=== PATIENT | female | born 1965 | race African-American/Black ===

== ENCOUNTER 2017-08-11 15:36 | Emergency (ER) | payer MEDICAID ==
[~2017-08-11] VITALS: Ht 167.6 cm; Wt 91.0 kg
[2017-08-11] MEDS ORDERED: LORAZEPAM 2MG/ML CPJ IM ONE (19:00)
[2017-08-11] MEDS ORDERED: HALOPERIDOL LACTATE 5MG/ML VIAL IM ONE (19:00)
[2017-08-11] MEDS ORDERED: ZIPRASIDONE MESYLATE 20MG/VIAL IM ONE (19:00)
[2017-08-12 22:30] VITALS: BP 110/59
== END 2017-08-12 23:00 | disposition home or self-care (01) ==
LOC: ER 15:46
DX: F91.8 Other conduct disorders (principal); M79.606 Pain in leg, unspecified; M19.90 Unspecified osteoarthritis, unspecified site
CPT/HCPCS: 96372; 99284; J1630; J2060; J3486; Z7610

== ENCOUNTER 2017-08-13 02:06 | Emergency (ER) | payer MEDICAID ==
[~2017-08-13] VITALS: Ht 177.8 cm; Wt 59.0 kg
[2017-08-13 02:17] VITALS: BP 100/65
[2017-08-13] MEDS ORDERED: KETOROLAC 60MG/2ML VIAL IM STA (10:10)
== END 2017-08-13 11:29 | disposition home or self-care (01) ==
LOC: ER 02:06
DX: S80.02XA Contusion of left knee, initial encounter (principal); S80.01XA Contusion of right knee, initial encounter; M25.512 Pain in left shoulder; M25.511 Pain in right shoulder; V00.811A Fall from moving wheelchair (powered), initial encounter; F17.200 Nicotine dependence, unspecified, uncomplicated; Z99.3 Dependence on wheelchair; Z78.1 Physical restraint status; Y93.9 Activity, unspecified
CPT/HCPCS: 73560; 96372; 99284; J1885

== ENCOUNTER 2017-12-31 12:11 | Inpatient (IN) | payer MEDICAID ==
[~2017-12-31] VITALS: Ht 152.4 cm; Wt 61.7 kg
[2017-12-31] MEDS ORDERED: SODIUM CHLORIDE 0.9% 1000ML BAG (SEPSIS BOLUS) IV ONE (13:15)
[2017-12-31 14:03] LABS: BASOPHILS % 0.6 % (0.0-2.0); EOSINOPHILS % 1.6 % (0.0-5.0); HEMATOCRIT. 37.8 % (36.0-48.0); HEMOGLOBIN. 12.7 g/dL (12.0-16.0); LYMPHOCYTES % 21.3 % (20.0-50.0); MEAN CORPUSCULAR HEMOGLOBIN 32.1 pg (28.0-32.0); MEAN CORPUSCULAR VOLUME 95.8 fL (81.0-99.0); MEAN PLATELET VOLUME 8.6 fl (7.4-10.4); MONOCYTES % 8.1 % (2.0-8.0); NEUTROPHILS % 68.4 % (40.0-76.0); PLATELET 314 x1000/uL (130-400); RED BLOOD CELL COUNT 3.95 mill/uL (4.2-5.4); RED CELL DISTRIBUTION WIDTH 14.7 % (11.6-14.6)
[2017-12-31 14:05] LABS: CHLORIDE 101 mEq/L (98-107)
[2017-12-31 14:08] LABS: PROTHROMBIN TIME 10.2 sec (9.1-11.1)
[2017-12-31 14:12] LABS: ETHANOL BLOOD < 10 mg/dL
[2017-12-31 14:17] LABS: HCG SCREEN NEGATIVE
[2017-12-31] MEDS ORDERED: LORAZEPAM 2MG/ML CPJ IV ONE ×2 (15:30→15:45)
[2017-12-31] MEDS ORDERED: LORAZEPAM 2MG/ML CPJ IV PRN (18:00)
[2017-12-31] MEDS ORDERED: CLONIDINE 0.1MG TABLET PO PRN (18:00)
[2017-12-31] MEDS: HYDROCODONE/ACETAMINOPHEN 5/325MG TABLET PO PRN (19:53)
[2017-12-31] MEDS: ONDANSETRON HCL 4MG/2ML VIAL IV PRN (19:53)
[2017-12-31 21:56] LABS: CLARITY URINE CLOUDY (CLEAR); COLOR URINE YELLOW (YELLOW); KETONES URINE 1+ (NEGATIVE); LEUKOCYTE ESTERASE URINE 2+ (NEGATIVE); NITRITE URINE NEGATIVE (NEGATIVE); OCCULT BLOOD URINE TRACE (NEGATIVE); PH URINE 5.5 (4.5-8.0); PROTEIN URINE NEGATIVE (NEGATIVE); SPECIFIC GRAVITY URINE 1.029 (1.005-1.030)
[2017-12-31 22:07] LABS: *AMPHETAMINES SCREEN URINE NEGATIVE (NEGATIVE); *BARBITURATES SCREEN URINE NEGATIVE (NEGATIVE); *BENZODIAZEPINES SCREEN URINE NEGATIVE (NEGATIVE); *COCAINE SCREEN URINE PRESUMTIVE POSITIVE (NEGATIVE)
[2017-12-31 22:08] LABS: CANNABINOID URINE SCREEN NEGATIVE (NEGATIVE); METHADONE URINE SCREEN NEGATIVE (NEGATIVE); OPIATES URINE SCREEN PRESUMTIVE POSITIVE (NEGATIVE); PHENCYCLIDINE URINE SCREEN NEGATIVE (NEGATIVE)
[2017-12-31 23:25] VITALS: BP 105/68
[2017-12-31 23:59] VITALS: BP 105/68
[2018-01-01 04:00] VITALS: BP 103/54
[2018-01-01] MEDS: ONDANSETRON HCL 4MG/2ML VIAL IV PRN (04:58)
[2018-01-01] MEDS: HYDROCODONE/ACETAMINOPHEN 5/325MG TABLET PO PRN ×2 (05:31→09:42)
[2018-01-01 07:08] LABS: BASOPHILS % 0.1 % (0.0-2.0); EOSINOPHILS % 1.4 % (0.0-5.0); HEMATOCRIT. 32.3 % (36.0-48.0); HEMOGLOBIN. 10.8 g/dL (12.0-16.0); MEAN CORPUSCULAR HEMOGLOBIN 32.1 pg (28.0-32.0); MEAN CORPUSCULAR VOLUME 95.7 fL (81.0-99.0); MEAN PLATELET VOLUME 8.7 fl (7.4-10.4); MONOCYTES % 9.7 % (2.0-8.0); NEUTROPHILS % 76.8 % (40.0-76.0); PLATELET 249 x1000/uL (130-400); RED BLOOD CELL COUNT 3.38 mill/uL (4.2-5.4); RED CELL DISTRIBUTION WIDTH 14.3 % (11.6-14.6)
[2018-01-01 08:00] VITALS: BP 96/57
[2018-01-01 08:11] LABS: CHLORIDE 104 mEq/L (98-107)
[2018-01-01 09:42] VITALS: BP 96/57
[2018-01-01] MEDS ORDERED: CEFTRIAXONE 1 G PREMIX 50 ML IV SCH (11:00)
[2018-01-01] MEDS ORDERED: ATORVASTATIN CALCIUM 40MG TABLET PO SCH (21:00)
== END 2018-01-01 11:17 | disposition left against medical advice (07) | DRG 463 ==
LOC: ER 12:24 → 5WST 17:22 → EDBEDREQTM 17:29 → EDBEDREQ 17:29 → ENRESERV 20:51 → 5WST 01-01 03:57
PROVIDERS: ADMIT Internal Medicine; ATTEND Internal Medicine
DX: N39.0 Urinary tract infection, site not specified (principal); G82.20 Paraplegia, unspecified; E78.5 Hyperlipidemia, unspecified; F14.90 Cocaine use, unspecified, uncomplicated; F17.200 Nicotine dependence, unspecified, uncomplicated; M48.00 Spinal stenosis, site unspecified; Z53.21 Procedure and treatment not carried out due to patient leaving prior to being seen by health care provider
CPT/HCPCS: 36415; 51702; 71045; 74176; 80048; 80053; 80061; 80305; 81003; 83036; 83605; 83690; 83880; 84443; 84484; 84703; 85025; 85610; 87040; 87086; 93005; 93970; 96361; 96374; 96376; 99285; G0482; J0696; J2060; J2405; J7030; J7050

== ENCOUNTER 2018-01-15 16:42 | Emergency (ER) | payer MEDICAID ==
[~2018-01-15] VITALS: Ht 165.1 cm; Wt 68.0 kg
[2018-01-16] MEDS ORDERED: ACETAMINOPHEN 325MG TABLET PO STA (01:03)
[2018-01-16 01:45] LABS: BASOPHILS % 0.5 % (0.0-2.0); EOSINOPHILS % 1.3 % (0.0-5.0); HEMATOCRIT. 40.5 % (36.0-48.0); HEMOGLOBIN. 13.5 g/dL (12.0-16.0); MEAN CORPUSCULAR HEMOGLOBIN 32.1 pg (28.0-32.0); MEAN CORPUSCULAR VOLUME 96.4 fL (81.0-99.0); MEAN PLATELET VOLUME 8.6 fl (7.4-10.4); MONOCYTES % 5.6 % (2.0-8.0); NEUTROPHILS % 68.6 % (40.0-76.0); PLATELET 358 x1000/uL (130-400); RED CELL DISTRIBUTION WIDTH 14.3 % (11.6-14.6)
[2018-01-16 01:48] LABS: CHLORIDE 102 mEq/L (98-107)
[2018-01-16 01:50] LABS: PROTHROMBIN TIME 10.4 sec (9.1-11.1)
[2018-01-16 01:55] LABS: ETHANOL BLOOD < 10 mg/dL
[2018-01-16 02:54] VITALS: BP 122/67
== END 2018-01-16 06:49 | disposition home or self-care (01) ==
LOC: ER 16:42
DX: R10.9 Unspecified abdominal pain (principal); Z98.890 Other specified postprocedural states
CPT/HCPCS: 36415; 80053; 80307; 80329; 83690; 85025; 85610; 99284; G0482; Z7610

== ENCOUNTER 2018-01-16 06:50 | Emergency (ER) | payer MEDICAID ==
[~2018-01-16] VITALS: Ht 152.4 cm; Wt 63.0 kg
[2018-01-16 07:33] VITALS: BP 126/72
== END 2018-01-16 08:41 | disposition left against medical advice (07) ==
LOC: ER 06:50
DX: R10.9 Unspecified abdominal pain (principal); M54.9 Dorsalgia, unspecified; R51 Headache; M25.519 Pain in unspecified shoulder; Z53.21 Procedure and treatment not carried out due to patient leaving prior to being seen by health care provider

== ENCOUNTER 2018-02-05 07:19 | Emergency (ER) | payer MEDICAID ==
[~2018-02-05] VITALS: Ht 154.9 cm; Wt 52.3 kg
[2018-02-05] MEDS ORDERED: ACETAMINOPHEN 500MG TABLET PO ONE (08:45)
[2018-02-05 13:47] VITALS: BP 110/62
== END 2018-02-05 14:29 | disposition home or self-care (01) ==
LOC: ER 07:34
DX: M19.011 Primary osteoarthritis, right shoulder (principal)
CPT/HCPCS: 73030; 99284; Z7610

== ENCOUNTER 2018-02-23 05:29 | Inpatient (IN) | payer MEDICAID ==
[~2018-02-23] VITALS: Ht 160 cm; Wt 59.0 kg
[2018-02-23] MEDS ORDERED: ONDANSETRON HCL 4MG/2ML INJ IV ONE (06:45)
[2018-02-23] MEDS ORDERED: KETOROLAC 15MG/ML VIAL IV ONE (06:45)
[2018-02-23 08:05] LABS: BASOPHILS % 0.5 % (0.0-2.0); EOSINOPHILS % 1.6 % (0.0-5.0); HEMATOCRIT. 40.2 % (36.0-48.0); HEMOGLOBIN. 13.3 g/dL (12.0-16.0); LYMPHOCYTES % 27.1 % (20.0-50.0); MEAN CORPUSCULAR HEMOGLOBIN 32.1 pg (28.0-32.0); MEAN CORPUSCULAR VOLUME 96.8 fL (81.0-99.0); MEAN PLATELET VOLUME 8.3 fl (7.4-10.4); NEUTROPHILS % 64.8 % (40.0-76.0); PLATELET 377 x1000/uL (130-400); RED BLOOD CELL COUNT 4.15 mill/uL (4.2-5.4); RED CELL DISTRIBUTION WIDTH 13.6 % (11.6-14.6)
[2018-02-23 08:15] LABS: CHLORIDE 105 mEq/L (98-107)
[2018-02-23 08:20] LABS: ETHANOL BLOOD < 10 mg/dL
[2018-02-23 10:43] LABS: CLARITY URINE CLEAR (CLEAR); COLOR URINE YELLOW (YELLOW); KETONES URINE 1+ (NEGATIVE); LEUKOCYTE ESTERASE URINE NEGATIVE (NEGATIVE); NITRITE URINE NEGATIVE (NEGATIVE); OCCULT BLOOD URINE NEGATIVE (NEGATIVE); PROTEIN URINE NEGATIVE (NEGATIVE); SPECIFIC GRAVITY URINE 1.012 (1.005-1.030)
[2018-02-23 11:03] LABS: *AMPHETAMINES SCREEN URINE NEGATIVE (NEGATIVE); *BARBITURATES SCREEN URINE NEGATIVE (NEGATIVE)
[2018-02-23 11:04] LABS: *BENZODIAZEPINES SCREEN URINE NEGATIVE (NEGATIVE); *COCAINE SCREEN URINE PRESUMTIVE POSITIVE (NEGATIVE); CANNABINOID URINE SCREEN NEGATIVE (NEGATIVE); METHADONE URINE SCREEN NEGATIVE (NEGATIVE); OPIATES URINE SCREEN NEGATIVE (NEGATIVE); PHENCYCLIDINE URINE SCREEN NEGATIVE (NEGATIVE)
[2018-02-23] MEDS ORDERED: SODIUM CHLORIDE 0.9% 1,000 ML IV ONE (12:00)
[2018-02-23] MEDS ORDERED: DEXT 5%/0.45% NACL 1000ML 1,000 ML IV SCH ×2 (13:53→17:45)
[2018-02-23] MEDS ORDERED: LORAZEPAM 2MG/ML CPJ IV PRN (14:00)
[2018-02-23] MEDS ORDERED: ACETAMINOPHEN 325MG TABLET PO PRN (14:00)
[2018-02-23] MEDS ORDERED: ONDANSETRON HCL 4MG/2ML INJ IV PRN (14:00)
[2018-02-23] MEDS ORDERED: CLONIDINE 0.1MG TABLET PO PRN (14:00)
[2018-02-23] MEDS ORDERED: DOCUSATE SODIUM 100MG CAPSULE PO PRN (14:00)
[2018-02-23 18:31] LABS: CREATINE KINASE 69 IU/L (26-192)
[2018-02-23 20:00] VITALS: BP 107/54
[2018-02-24] VITALS: BP 112/63
[2018-02-24 08:00] VITALS: BP 115/62
[2018-02-24] MEDS ORDERED: AMLODIPINE 10MG TABLET PO SCH (09:00)
[2018-02-24] MEDS: AMLODIPINE 10MG TABLET PO SCH (09:57)
[2018-02-24 12:00] VITALS: BP 98/50
[2018-02-24] MEDS: LORAZEPAM 2MG/ML CPJ IM PRN (14:14)
[2018-02-24 20:00] VITALS: BP 104/53
[2018-02-24] MEDS: HYDROCODONE/ACETAMINOPHEN 5/325MG TABLET PO PRN (20:22)
[2018-02-25] MEDS: LORAZEPAM 2MG/ML CPJ IM PRN ×3 (03:33→22:54)
[2018-02-25] MEDS: HYDROCODONE/ACETAMINOPHEN 5/325MG TABLET PO PRN ×3 (03:33→16:06)
[2018-02-25 04:00] VITALS: BP 115/72
[2018-02-25 08:00] VITALS: BP 118/71
[2018-02-25] MEDS: AMLODIPINE 10MG TABLET PO SCH ×2 (09:04→09:23)
[2018-02-25 12:00] VITALS: BP 118/71
[2018-02-25 16:00] VITALS: BP 109/69
[2018-02-25 20:00] VITALS: BP 117/68
[2018-02-26] VITALS: BP 114/62
[2018-02-26] MEDS: HYDROCODONE/ACETAMINOPHEN 5/325MG TABLET PO PRN ×2 (02:34→22:29)
[2018-02-26 07:50] VITALS: BP 108/66
[2018-02-26 12:00] VITALS: BP 140/57
[2018-02-26] MEDS: LORAZEPAM 2MG/ML CPJ IM PRN ×2 (13:46→22:31)
[2018-02-26 16:00] VITALS: BP 128/78
[2018-02-26 20:00] VITALS: BP 97/53
[2018-02-27] VITALS: BP 129/70
[2018-02-27 04:00] VITALS: BP 94/48
[2018-02-27 08:00] VITALS: BP 126/72
[2018-02-27] MEDS: AMLODIPINE 10MG TABLET PO SCH (08:44)
[2018-02-27 12:00] VITALS: BP 123/74
[2018-02-27 16:00] VITALS: BP 108/71
[2018-02-27] MEDS: HYDROCODONE/ACETAMINOPHEN 5/325MG TABLET PO PRN (16:08)
[2018-02-27] MEDS: LORAZEPAM 2MG/ML CPJ IM PRN (22:30)
[2018-02-28] VITALS: BP 111/66
[2018-02-28 04:00] VITALS: BP 111/65
[2018-02-28] MEDS: AMLODIPINE 10MG TABLET PO SCH (08:39)
[2018-03-10] MEDS ORDERED: METH-612 PO (10:54)
[2018-03-10] MEDS ORDERED: GABA-533 PO (10:59)
[2018-03-10] MEDS ORDERED: HYDR-4009 PO (10:59)
== END 2018-02-28 12:15 | disposition left against medical advice (07) | DRG 816 ==
LOC: ER 05:29 → 6EST 13:37 → EDBEDREQ 13:49 → SUPCPDRO 13:52 → ENRESERV 15:22 → ER 17:41
PROVIDERS: ADMIT Hospitalist; ATTEND Hospitalist
DX: T40.5X1A Poisoning by cocaine, accidental (unintentional), initial encounter (principal); L89.891 Pressure ulcer of other site, stage 1; E86.0 Dehydration; Z53.21 Procedure and treatment not carried out due to patient leaving prior to being seen by health care provider; I10 Essential (primary) hypertension; Z59.0 Homelessness
CPT/HCPCS: 36415; 80305; 82550; 82962; 96361; 96372; 96374; 96375; 99285; A6261; C1893; G0482; J1885; J2060; J2405; J7030; A4315

== ENCOUNTER 2018-03-19 06:01 | Emergency (ER) | payer MEDICAID ==
[~2018-03-19] VITALS: Ht 160 cm; Wt 64.0 kg
[~2018-03-19 06:01] MED LIST: GABA-533 PO; HYDR-4009 PO; METH-612 PO
[2018-03-19] MEDS ORDERED: GABAPENTIN 300MG CAPSULE PO SCH (21:15)
[2018-03-19] MEDS: ACETAMINOPHEN 325MG TABLET PO ONE ×2 (21:21→21:22)
[2018-03-19] MEDS ORDERED: HYDROCODONE/ACETAMINOPHEN 5/325MG TABLET PO ONE (22:00)
[2018-03-20] MEDS ORDERED: IBUPROFEN 600MG TABLET PO ONE (04:15)
[2018-03-20 12:18] VITALS: BP 97/54
== END 2018-03-20 12:20 | disposition home or self-care (01) ==
LOC: ER 06:01
DX: M54.2 Cervicalgia (principal); M54.9 Dorsalgia, unspecified
CPT/HCPCS: 72100; 99283

== ENCOUNTER 2018-04-02 05:46 | Emergency (ER) | payer MEDICAID ==
[~2018-04-02] VITALS: Ht 157.5 cm; Wt 50.0 kg
[2018-04-02 08:05] LABS: HEMATOCRIT. 41.7 % (36.0-48.0); HEMOGLOBIN. 13.8 g/dL (12.0-16.0); MEAN CORPUSCULAR HEMOGLOBIN 32.3 pg (28.0-32.0); MEAN CORPUSCULAR VOLUME 97.5 fL (81.0-99.0); PLATELET 326 x1000/uL (130-400); RED BLOOD CELL COUNT 4.28 mill/uL (4.2-5.4); RED CELL DISTRIBUTION WIDTH 13.9 % (11.6-14.6)
[2018-04-02 08:09] LABS: CHLORIDE 104 mEq/L (98-107)
[2018-04-02 08:13] LABS: ETHANOL BLOOD < 10 mg/dL
[2018-04-02] MEDS ORDERED: ACETAMINOPHEN 325MG TABLET PO ONE (08:15)
[2018-04-02 09:01] LABS: CLARITY URINE CLEAR (CLEAR); COLOR URINE YELLOW (YELLOW); KETONES URINE 1+ (NEGATIVE); LEUKOCYTE ESTERASE URINE NEGATIVE (NEGATIVE); NITRITE URINE NEGATIVE (NEGATIVE); OCCULT BLOOD URINE NEGATIVE (NEGATIVE); PROTEIN URINE NEGATIVE (NEGATIVE); SPECIFIC GRAVITY URINE 1.027 (1.005-1.030)
[2018-04-02 09:19] LABS: *AMPHETAMINES SCREEN URINE PRESUMTIVE POSITIVE (NEGATIVE); *BENZODIAZEPINES SCREEN URINE NEGATIVE (NEGATIVE); *COCAINE SCREEN URINE PRESUMTIVE POSITIVE (NEGATIVE)
[2018-04-02 09:20] LABS: *BARBITURATES SCREEN URINE NEGATIVE (NEGATIVE); CANNABINOID URINE SCREEN PRESUMTIVE POSITIVE (NEGATIVE); METHADONE URINE SCREEN NEGATIVE (NEGATIVE); OPIATES URINE SCREEN NEGATIVE (NEGATIVE); PHENCYCLIDINE URINE SCREEN NEGATIVE (NEGATIVE)
[2018-04-02 10:34] VITALS: BP 109/60
[2018-04-02 11:10] LABS: PLATELET ESTIMATE NORMAL
== END 2018-04-02 10:39 | disposition home or self-care (01) ==
LOC: ER 06:03
DX: R51 Headache (principal); M19.90 Unspecified osteoarthritis, unspecified site; I10 Essential (primary) hypertension; Z79.899 Other long term (current) drug therapy
CPT/HCPCS: 36415; 80053; 80305; 81003; 85025; 99283; G0482

== ENCOUNTER 2018-04-05 03:59 | Inpatient (IN) | payer MEDICAID ==
[~2018-04-05] VITALS: Ht 157.5 cm; Wt 58.5 kg
[2018-04-05] MEDS ORDERED: CYCLOBENZAPRINE 10MG TABLET PO ONE (07:00)
[2018-04-05] MEDS ORDERED: ACETAMINOPHEN WITH CODEINE 300/30MG TABLET PO ONE (07:00)
[2018-04-05 07:28] LABS: BASOPHILS % 0.5 % (0.0-2.0); EOSINOPHILS % 1.8 % (0.0-5.0); HEMATOCRIT. 41.7 % (36.0-48.0); LYMPHOCYTES % 35.9 % (20.0-50.0); MEAN CORPUSCULAR HEMOGLOBIN 33.1 pg (28.0-32.0); MEAN CORPUSCULAR VOLUME 98.6 fL (81.0-99.0); MEAN PLATELET VOLUME 8.6 fl (7.4-10.4); MONOCYTES % 8.8 % (2.0-8.0); PLATELET 288 x1000/uL (130-400); RED BLOOD CELL COUNT 4.23 mill/uL (4.2-5.4); RED CELL DISTRIBUTION WIDTH 13.6 % (11.6-14.6)
[2018-04-05 07:35] LABS: CHLORIDE 105 mEq/L (98-107)
[2018-04-05 12:01] LABS: CLARITY URINE TURBID (CLEAR); COLOR URINE DARK YELLOW (YELLOW); KETONES URINE 1+ (NEGATIVE); LEUKOCYTE ESTERASE URINE 2+ (NEGATIVE); NITRITE URINE POSITIVE (NEGATIVE); OCCULT BLOOD URINE 3+ (NEGATIVE); PROTEIN URINE 3+ (NEGATIVE)
[2018-04-05] MEDS ORDERED: CEFTRIAXONE 1 G PREMIX 50 ML IV ONE (12:45)
[2018-04-05] MEDS ORDERED: MORPHINE SULFATE 4 MG/ML CPJ (NOT FOR IM USE) IV ONE (13:00)
[2018-04-05] MEDS ORDERED: MORPHINE SULFATE 2 MG/ML CPJ (NOT FOR IM USE) IV NR (13:45)
[2018-04-05] MEDS ORDERED: CLONIDINE 0.1MG TABLET PO PRN (17:15)
[2018-04-05] MEDS ORDERED: ACETAMINOPHEN 325MG TABLET PO PRN (17:15)
[2018-04-05] MEDS ORDERED: ONDANSETRON HCL 4MG/2ML INJ IV PRN (17:15)
[2018-04-05] MEDS ORDERED: KETOROLAC 15MG/ML VIAL IV PRN (17:30)
[2018-04-05] MEDS ORDERED: MULTIVITAMINS,THER W-MINERALS TABLET PO NR (20:00)
[2018-04-05] MEDS: SODIUM CHLORIDE 0.9% 1,000 ML IV SCH (20:10)
[2018-04-06] VITALS: BP 109/60
[2018-04-06 01:00] VITALS: BP 109/60
[2018-04-06 04:00] VITALS: BP 119/66
[2018-04-06] MEDS: SODIUM CHLORIDE 0.9% 1,000 ML IV SCH (06:45)
[2018-04-06 08:00] VITALS: BP 164/68
[2018-04-06] MEDS ORDERED: CEFTRIAXONE SODIUM 1 G/VIAL IM SCH (09:00)
[2018-04-06] MEDS: MULTIVITAMINS,THER W-MINERALS TABLET PO SCH (09:26)
[2018-04-06 11:00] LABS: BASOPHILS % 0.7 % (0.0-2.0); HEMATOCRIT. 37.1 % (36.0-48.0); HEMOGLOBIN. 12.2 g/dL (12.0-16.0); LYMPHOCYTES % 39.5 % (20.0-50.0); MEAN CORPUSCULAR HEMOGLOBIN 32.4 pg (28.0-32.0); MEAN CORPUSCULAR VOLUME 98.6 fL (81.0-99.0); MEAN PLATELET VOLUME 9.4 fl (7.4-10.4); MONOCYTES % 6.1 % (2.0-8.0); NEUTROPHILS % 51.7 % (40.0-76.0); PLATELET 245 x1000/uL (130-400); RED BLOOD CELL COUNT 3.76 mill/uL (4.2-5.4); RED CELL DISTRIBUTION WIDTH 13.7 % (11.6-14.6)
[2018-04-06 11:26] LABS: CHLORIDE 109 mEq/L (98-107)
[2018-04-06 12:00] VITALS: BP 98/64
[2018-04-06] MEDS ORDERED: CEFTRIAXONE 1 G PREMIX 50 ML IV SCH (14:00)
[2018-04-06] MEDS: NYSTATIN 100,000 UNITS/GM CREAM 15GM TOP SCH (21:00)
[2018-04-07 03:51] VITALS: BP 119/59
[2018-04-07 08:00] VITALS: BP 130/77
[2018-04-07] MEDS: MULTIVITAMINS,THER W-MINERALS TABLET PO SCH (08:22)
[2018-04-07] MEDS: NYSTATIN 100,000 UNITS/GM CREAM 15GM TOP SCH ×2 (08:22→09:00)
[2018-04-07] MEDS ORDERED: HALOPERIDOL LACTATE 5MG/ML VIAL IM PRN (11:45)
[2018-04-07] MEDS ORDERED: HALOPERIDOL 1MG TABLET PO PRN (11:45)
[2018-04-07] MEDS: NITROFURANTOIN 100MG M/M CAPSULE PO SCH ×2 (13:21→21:00)
[2018-04-07 20:00] VITALS: BP 135/70
[2018-04-08] VITALS: BP 130/81
[2018-04-08] MEDS: NITROFURANTOIN 100MG M/M CAPSULE PO SCH (00:13)
[2018-04-08] MEDS: NYSTATIN 100,000 UNITS/GM CREAM 15GM TOP SCH (00:13)
== END 2018-04-08 02:30 | disposition left against medical advice (07) | DRG 463 ==
LOC: ER 03:59 → 6EST 16:39 → ENRESERV 23:19
PROVIDERS: ADMIT Emergency Medicine; ATTEND Emergency Medicine
DX: N39.0 Urinary tract infection, site not specified (principal); L89.159 Pressure ulcer of sacral region, unspecified stage; G82.20 Paraplegia, unspecified; E86.0 Dehydration; G89.29 Other chronic pain; I10 Essential (primary) hypertension; M19.90 Unspecified osteoarthritis, unspecified site; M54.5 Low back pain; Z59.0 Homelessness; Z76.5 Malingerer [conscious simulation]; Z99.3 Dependence on wheelchair; Z98.891 History of uterine scar from previous surgery
CPT/HCPCS: 36415; 71045; 80048; 87077; 87186; 97162; 97166; 99285; J0696; J1630; J1885; J2270

== ENCOUNTER 2018-09-02 09:33 | Emergency (ER) | payer MEDICAID, OTHER ==
[~2018-09-02] VITALS: Ht 162.6 cm; Wt 60.0 kg
[2018-09-02] MEDS ORDERED: HYDROCODONE/ACETAMINOPHEN 5/325MG TABLET PO ONE (10:00)
[2018-09-02] MEDS ORDERED: HALOPERIDOL LACTATE 5MG/ML VIAL IM ONE (22:15)
[2018-09-02] MEDS ORDERED: QUETIAPINE FUMARATE 100MG TABLET PO ONE (22:15)
[2018-09-02] MEDS ORDERED: DIPHENHYDRAMINE 50MG CAPSULE PO ONE (22:15)
[2018-09-03 14:45] VITALS: BP 105/55
== END 2018-09-03 15:14 | disposition home or self-care (01) ==
LOC: ER 09:55
DX: M54.2 Cervicalgia (principal); R51 Headache; G82.20 Paraplegia, unspecified; Z99.3 Dependence on wheelchair; W05.0XXA Fall from non-moving wheelchair, initial encounter; Y93.89 Activity, other specified; Y92.89 Other specified places as the place of occurrence of the external cause; G89.29 Other chronic pain; M54.89 Other dorsalgia; I10 Essential (primary) hypertension; Z59.0 Homelessness
CPT/HCPCS: 70450; 72125; 99284; J1630; Q0163; Z7610; A4315

== ENCOUNTER 2018-09-03 23:19 | Emergency (ER) | payer OTHER ==
[~2018-09-03] VITALS: Ht 157.5 cm; Wt 67.0 kg
[2018-09-04 06:04] LABS: CLARITY URINE CLEAR (CLEAR); COLOR URINE YELLOW (YELLOW); KETONES URINE NEGATIVE (NEGATIVE); LEUKOCYTE ESTERASE URINE 1+ (NEGATIVE); NITRITE URINE POSITIVE (NEGATIVE); OCCULT BLOOD URINE NEGATIVE (NEGATIVE); PROTEIN URINE NEGATIVE (NEGATIVE); SPECIFIC GRAVITY URINE 1.008 (1.005-1.030)
[2018-09-04 11:30] VITALS: BP 126/74
== END 2018-09-04 12:01 | disposition home or self-care (01) ==
LOC: ER 23:19
DX: M79.605 Pain in left leg (principal); M79.604 Pain in right leg; N39.0 Urinary tract infection, site not specified; Z99.3 Dependence on wheelchair
CPT/HCPCS: 99283

== ENCOUNTER 2020-01-07 06:19 | Inpatient (IN) | payer MEDICAID, OTHER ==
[~2020-01-07] VITALS: Ht 157.5 cm; Wt 67.8 kg
[2020-01-07] MEDS ORDERED: ACETAMINOPHEN 325MG TABLET PO ONE (06:30)
[2020-01-07 16:47] LABS: CHLORIDE 107 mEq/L (98-107)
[2020-01-07 17:28] LABS: BASOPHILS % 0.7 % (0.0-2.0); EOSINOPHILS % 1.7 % (0.0-5.0); HEMOGLOBIN. 11.6 g/dL (12.0-16.0); LYMPHOCYTES % 33.3 % (20.0-50.0); MEAN CORPUSCULAR HEMOGLOBIN 33.1 pg (28.0-32.0); MEAN CORPUSCULAR VOLUME 99.4 fL (81.0-99.0); MONOCYTES % 7.4 % (2.0-8.0); NEUTROPHILS % 56.9 % (40.0-76.0); PLATELET 249 x1000/uL (130-400); RED BLOOD CELL COUNT 3.52 mill/uL (4.2-5.4); RED CELL DISTRIBUTION WIDTH 12.9 % (11.6-14.6)
[2020-01-07] MEDS ORDERED: KETOROLAC 60MG/2ML VIAL IM ONE (18:15)
[2020-01-08 09:00] VITALS: BP 85/55
[2020-01-08] MEDS ORDERED: ONDANSETRON HCL 4MG/2ML INJ IV PRN (09:00)
[2020-01-08] MEDS ORDERED: TRAMADOL 50MG TABLET PO PRN (09:00)
[2020-01-08] MEDS ORDERED: KETOROLAC 30MG/ML VIAL IV PRN (09:00)
[2020-01-08] MEDS ORDERED: ACETAMINOPHEN 325MG TABLET PO PRN (09:00)
[2020-01-08 09:10] VITALS: BP 85/52
[2020-01-08 10:00] VITALS: BP 89/55
[2020-01-08] MEDS: ENOXAPARIN 40MG/0.4ML SYR SUBCUT SCH (10:15)
[2020-01-08 12:00] VITALS: BP_SYST 89; BP_SYST 91; BP_DIAS 55; BP_DIAS 63
[2020-01-08 16:00] VITALS: BP 93/72
[2020-01-08] MEDS ORDERED: HYDROCODONE/ACETAMINOPHEN 5/325MG TABLET PO PRN (17:15)
[2020-01-08] MEDS ORDERED: POTASSIUM CHLORIDE 20MEQ TABLET SR PO NR (20:30)
[2020-01-09] MEDS ORDERED: MORPHINE SULFATE 2 MG/ML CPJ (NOT FOR IM USE) IV PRN (00:30)
[2020-01-09] MEDS: GABAPENTIN 400MG CAPSULE PO SCH ×3 (00:45→17:39)
[2020-01-09 02:49] VITALS: BP 130/66
[2020-01-09] MEDS: METHOCARBAMOL 750MG TABLET PO SCH ×3 (02:56→17:39)
[2020-01-09 07:01] LABS: BASOPHILS % 0.5 % (0.0-2.0); EOSINOPHILS % 1.5 % (0.0-5.0); HEMATOCRIT. 33.3 % (36.0-48.0); HEMOGLOBIN. 11.1 g/dL (12.0-16.0); LYMPHOCYTES % 48.5 % (20.0-50.0); MEAN CORPUSCULAR HEMOGLOBIN 33.8 pg (28.0-32.0); MEAN CORPUSCULAR VOLUME 101.5 fL (81.0-99.0); MEAN PLATELET VOLUME 8.5 fl (7.4-10.4); MONOCYTES % 6.6 % (2.0-8.0); NEUTROPHILS % 42.9 % (40.0-76.0); PLATELET 257 x1000/uL (130-400); RED BLOOD CELL COUNT 3.28 mill/uL (4.2-5.4); RED CELL DISTRIBUTION WIDTH 12.8 % (11.6-14.6)
[2020-01-09 07:05] LABS: CHLORIDE 111 mEq/L (98-107)
[2020-01-09 08:00] VITALS: BP 105/64
[2020-01-09] MEDS: ENOXAPARIN 40MG/0.4ML SYR SUBCUT SCH (09:31)
[2020-01-09] MEDS: LORAZEPAM 2MG/ML CPJ IV PRN (11:10)
[2020-01-09 20:00] VITALS: BP 102/71
[2020-01-09] MEDS: HYDROCODONE/ACETAMINOPHEN 5/325MG TABLET PO PRN (20:59)
[2020-01-09] MEDS: ATORVASTATIN CALCIUM 40MG TABLET PO SCH (21:00)
[2020-01-10] VITALS: BP 115/59
[2020-01-10] MEDS: LORAZEPAM 2MG/ML CPJ IV PRN ×2 (00:57→08:16)
[2020-01-10 04:00] VITALS: BP 149/72
[2020-01-10 08:00] VITALS: BP 155/87
[2020-01-10] MEDS: ENOXAPARIN 40MG/0.4ML SYR SUBCUT SCH (08:08)
[2020-01-10] MEDS: METHOCARBAMOL 750MG TABLET PO SCH ×2 (08:08→17:23)
[2020-01-10] MEDS: GABAPENTIN 400MG CAPSULE PO SCH ×2 (08:08→17:24)
[2020-01-10 12:00] VITALS: BP 114/79
[2020-01-10 16:00] VITALS: BP 112/70
[2020-01-10] MEDS: HYDROCODONE/ACETAMINOPHEN 5/325MG TABLET PO PRN ×2 (17:24→23:38)
[2020-01-10] MEDS: ATORVASTATIN CALCIUM 40MG TABLET PO SCH (21:28)
[2020-01-11] VITALS: BP 123/70
[2020-01-11 04:00] VITALS: BP 122/73
[2020-01-11] MEDS: HYDROCODONE/ACETAMINOPHEN 5/325MG TABLET PO PRN ×3 (05:35→17:00)
[2020-01-11 08:00] VITALS: BP 107/57
[2020-01-11] MEDS: ENOXAPARIN 40MG/0.4ML SYR SUBCUT SCH (09:08)
[2020-01-11] MEDS: METHOCARBAMOL 750MG TABLET PO SCH ×2 (09:08→17:01)
[2020-01-11] MEDS: GABAPENTIN 400MG CAPSULE PO SCH ×2 (09:08→17:00)
[2020-01-11 12:00] VITALS: BP 109/61
[2020-01-11 16:00] VITALS: BP 105/76
[2020-01-11 20:00] VITALS: BP 110/62
[2020-01-11] MEDS: ATORVASTATIN CALCIUM 40MG TABLET PO SCH (20:52)
[2020-01-12] VITALS: BP_SYST 106; BP_SYST 115; BP_DIAS 58; BP_DIAS 71
[2020-01-12 04:00] VITALS: BP 106/58
[2020-01-12 08:00] VITALS: BP 114/70
[2020-01-12] MEDS: METHOCARBAMOL 750MG TABLET PO SCH ×2 (09:17→17:26)
[2020-01-12] MEDS: GABAPENTIN 400MG CAPSULE PO SCH ×2 (09:17→17:26)
[2020-01-12] MEDS: ENOXAPARIN 40MG/0.4ML SYR SUBCUT SCH (09:18)
[2020-01-12] MEDS: HYDROCODONE/ACETAMINOPHEN 5/325MG TABLET PO PRN ×3 (09:47→22:15)
[2020-01-12 12:00] VITALS: BP 98/50
[2020-01-12 18:00] VITALS: BP 89/40
[2020-01-12 20:00] VITALS: BP 103/61
[2020-01-12] MEDS: ATORVASTATIN CALCIUM 40MG TABLET PO SCH (21:37)
[2020-01-13] VITALS: BP 112/50
[2020-01-13 04:00] VITALS: BP 119/59
[2020-01-13] MEDS: HYDROCODONE/ACETAMINOPHEN 5/325MG TABLET PO PRN (05:57)
[2020-01-13 08:00] VITALS: BP 95/46
[2020-01-13] MEDS: GABAPENTIN 400MG CAPSULE PO SCH ×2 (09:31→17:42)
[2020-01-13] MEDS: ENOXAPARIN 40MG/0.4ML SYR SUBCUT SCH (09:31)
[2020-01-13] MEDS: METHOCARBAMOL 750MG TABLET PO SCH ×2 (09:31→17:42)
[2020-01-13 12:00] VITALS: BP 98/50
[2020-01-13 16:00] VITALS: BP 90/41
[2020-01-13 20:00] VITALS: BP 112/69
[2020-01-13] MEDS: ATORVASTATIN CALCIUM 40MG TABLET PO SCH (20:33)
[2020-01-14] VITALS: BP 110/54
[2020-01-14 04:00] VITALS: BP 101/53
[2020-01-14] MEDS: HYDROCODONE/ACETAMINOPHEN 5/325MG TABLET PO PRN ×2 (04:27→21:25)
[2020-01-14] MEDS: DOCUSATE SODIUM 250MG CAPSULE PO SCH ×2 (09:10→17:43)
[2020-01-14] MEDS: METHOCARBAMOL 750MG TABLET PO SCH ×2 (09:10→17:43)
[2020-01-14] MEDS: GABAPENTIN 400MG CAPSULE PO SCH ×2 (09:10→17:43)
[2020-01-14] MEDS: ENOXAPARIN 40MG/0.4ML SYR SUBCUT SCH (09:10)
[2020-01-14 16:00] VITALS: BP 115/60
[2020-01-14 20:00] VITALS: BP 96/65
[2020-01-14] MEDS: ATORVASTATIN CALCIUM 40MG TABLET PO SCH (21:20)
[2020-01-15] VITALS: BP 90/55
[2020-01-15] MEDS: LIDOCAINE HCL 4% CREAM 76GM TUBE TP PRN ×3 (00:09→21:03)
[2020-01-15 04:00] VITALS: BP 107/62
[2020-01-15 08:00] VITALS: BP 101/52
[2020-01-15] MEDS: METHOCARBAMOL 750MG TABLET PO SCH ×2 (11:50→17:18)
[2020-01-15] MEDS: DOCUSATE SODIUM 250MG CAPSULE PO SCH ×2 (11:50→17:18)
[2020-01-15] MEDS: GABAPENTIN 400MG CAPSULE PO SCH ×2 (11:50→17:18)
[2020-01-15] MEDS: ENOXAPARIN 40MG/0.4ML SYR SUBCUT SCH (11:50)
[2020-01-15] MEDS: HYDROCODONE/ACETAMINOPHEN 5/325MG TABLET PO PRN (12:38)
[2020-01-15 16:00] VITALS: BP 104/55
[2020-01-15 20:00] VITALS: BP 123/55
[2020-01-15] MEDS: ATORVASTATIN CALCIUM 40MG TABLET PO SCH (21:02)
[2020-01-16] VITALS: BP 113/59
[2020-01-16] MEDS: HYDROCODONE/ACETAMINOPHEN 5/325MG TABLET PO PRN ×4 (02:33→20:52)
[2020-01-16 04:00] VITALS: BP 98/59
[2020-01-16 08:07] VITALS: BP 101/48
[2020-01-16] MEDS: METHOCARBAMOL 750MG TABLET PO SCH ×2 (09:30→19:08)
[2020-01-16] MEDS: DOCUSATE SODIUM 250MG CAPSULE PO SCH ×2 (09:30→19:07)
[2020-01-16] MEDS: GABAPENTIN 400MG CAPSULE PO SCH ×2 (09:31→19:07)
[2020-01-16] MEDS: ENOXAPARIN 40MG/0.4ML SYR SUBCUT SCH (09:31)
[2020-01-16 12:00] VITALS: BP 97/62
[2020-01-16] MEDS: LIDOCAINE HCL 4% CREAM 76GM TUBE TP PRN (15:41)
[2020-01-16 16:00] VITALS: BP 90/48
[2020-01-16 20:00] VITALS: BP 104/61
[2020-01-16] MEDS: ATORVASTATIN CALCIUM 40MG TABLET PO SCH (20:51)
[2020-01-16] MEDS: LORAZEPAM 2MG/ML CPJ IV PRN (21:55)
[2020-01-17] VITALS: BP 115/69
[2020-01-17] MEDS: LIDOCAINE HCL 4% CREAM 76GM TUBE TP PRN ×2 (01:28→16:13)
[2020-01-17 04:00] VITALS: BP 117/51
[2020-01-17] MEDS: LORAZEPAM 2MG/ML CPJ IV PRN ×2 (06:33→20:41)
[2020-01-17 08:00] VITALS: BP 117/45
[2020-01-17 08:22] LABS: BASOPHILS % 0.4 % (0.0-2.0); EOSINOPHILS % 1.2 % (0.0-5.0); HEMATOCRIT. 35.2 % (36.0-48.0); HEMOGLOBIN. 11.6 g/dL (12.0-16.0); MEAN CORPUSCULAR VOLUME 100.1 fL (81.0-99.0); MEAN PLATELET VOLUME 9.2 fl (7.4-10.4); MONOCYTES % 8.2 % (2.0-8.0); NEUTROPHILS % 53.2 % (40.0-76.0); PLATELET 267 x1000/uL (130-400); RED BLOOD CELL COUNT 3.51 mill/uL (4.2-5.4); RED CELL DISTRIBUTION WIDTH 13.1 % (11.6-14.6)
[2020-01-17] MEDS: DOCUSATE SODIUM 250MG CAPSULE PO SCH ×2 (09:35→16:13)
[2020-01-17] MEDS: METHOCARBAMOL 750MG TABLET PO SCH ×2 (09:35→16:13)
[2020-01-17] MEDS: GABAPENTIN 400MG CAPSULE PO SCH ×2 (09:35→16:13)
[2020-01-17] MEDS: ENOXAPARIN 40MG/0.4ML SYR SUBCUT SCH (09:36)
[2020-01-17 12:00] VITALS: BP 105/62
[2020-01-17 16:00] VITALS: BP 108/55
[2020-01-17 20:00] VITALS: BP 111/54
[2020-01-17] MEDS: ATORVASTATIN CALCIUM 40MG TABLET PO SCH (20:41)
[2020-01-17] MEDS: HYDROCODONE/ACETAMINOPHEN 5/325MG TABLET PO PRN (21:17)
[2020-01-18] VITALS: BP 115/71
[2020-01-18 04:00] VITALS: BP 104/60
[2020-01-18] MEDS: LORAZEPAM 2MG/ML CPJ IV PRN (04:40)
[2020-01-18 08:00] VITALS: BP 111/73
[2020-01-18] MEDS: HYDROCODONE/ACETAMINOPHEN 5/325MG TABLET PO PRN ×2 (09:46→22:01)
[2020-01-18] MEDS: ENOXAPARIN 40MG/0.4ML SYR SUBCUT SCH (09:50)
[2020-01-18] MEDS: METHOCARBAMOL 750MG TABLET PO SCH ×2 (09:50→17:28)
[2020-01-18] MEDS: GABAPENTIN 400MG CAPSULE PO SCH ×2 (09:50→17:28)
[2020-01-18] MEDS: DOCUSATE SODIUM 250MG CAPSULE PO SCH ×2 (09:50→17:28)
[2020-01-18 12:00] VITALS: BP 117/73
[2020-01-18 20:00] VITALS: BP 107/69
[2020-01-18] MEDS: ATORVASTATIN CALCIUM 40MG TABLET PO SCH (21:54)
[2020-01-19] VITALS: BP 106/60
[2020-01-19 04:00] VITALS: BP 103/61
[2020-01-19] MEDS ORDERED: HYDROCODONE/ACETAMINOPHEN 5/325MG TABLET PO PRN (05:00)
[2020-01-19] MEDS: LIDOCAINE HCL 4% CREAM 76GM TUBE TP PRN (05:43)
[2020-01-19 08:00] VITALS: BP 101/60
[2020-01-19] MEDS: DOCUSATE SODIUM 250MG CAPSULE PO SCH ×2 (09:34→18:08)
[2020-01-19] MEDS: METHOCARBAMOL 750MG TABLET PO SCH ×2 (09:34→18:08)
[2020-01-19] MEDS: GABAPENTIN 400MG CAPSULE PO SCH ×2 (09:34→18:08)
[2020-01-19] MEDS: ENOXAPARIN 40MG/0.4ML SYR SUBCUT SCH (09:35)
[2020-01-19] MEDS: LORAZEPAM 2MG/ML CPJ IV PRN ×2 (10:01→18:09)
[2020-01-19 20:00] VITALS: BP 127/71
[2020-01-19] MEDS: ATORVASTATIN CALCIUM 40MG TABLET PO SCH (21:41)
[2020-01-19] MEDS: HYDROCODONE/ACETAMINOPHEN 5/325MG TABLET PO PRN (21:41)
[2020-01-20 04:00] VITALS: BP 105/53
[2020-01-20 08:00] VITALS: BP_SYST 121; BP_SYST 122; BP_DIAS 68; BP_DIAS 73
[2020-01-20] MEDS: METHOCARBAMOL 750MG TABLET PO SCH ×2 (09:46→18:33)
[2020-01-20] MEDS: DOCUSATE SODIUM 250MG CAPSULE PO SCH (09:46)
[2020-01-20] MEDS: ENOXAPARIN 40MG/0.4ML SYR SUBCUT SCH (09:46)
[2020-01-20] MEDS: GABAPENTIN 400MG CAPSULE PO SCH ×2 (09:47→18:33)
[2020-01-20] MEDS: HYDROCODONE/ACETAMINOPHEN 5/325MG TABLET PO PRN ×3 (09:47→22:46)
[2020-01-20 12:00] VITALS: BP 118/59
[2020-01-20 16:00] VITALS: BP 101/62
[2020-01-20 20:00] VITALS: BP 110/60
[2020-01-20] MEDS: LORAZEPAM 2MG/ML CPJ IV PRN (22:46)
[2020-01-20] MEDS: ATORVASTATIN CALCIUM 40MG TABLET PO SCH (23:00)
[2020-01-21] VITALS: BP 115/60
[2020-01-21 04:00] VITALS: BP 113/71
[2020-01-21 08:00] VITALS: BP 88/62
[2020-01-21] MEDS: DOCUSATE SODIUM 250MG CAPSULE PO SCH (08:45)
[2020-01-21] MEDS: GABAPENTIN 400MG CAPSULE PO SCH (08:45)
[2020-01-21] MEDS: ENOXAPARIN 40MG/0.4ML SYR SUBCUT SCH (08:45)
[2020-01-21] MEDS: METHOCARBAMOL 750MG TABLET PO SCH (08:45)
[2020-01-21 12:00] VITALS: BP 90/71
[2020-01-21] MEDS ORDERED: LIP40 PO (12:12)
[2020-01-21] MEDS ORDERED: HYDR-4009 PO (12:12)
[2020-01-21] MEDS ORDERED: METH-612 PO (12:12)
[2020-01-21] MEDS ORDERED: GABA-533 PO (12:12)
[2020-01-21] MEDS ORDERED: DOCU250C14 PO (12:12)
[2020-01-21 12:30] VITALS: BP 102/60
[2020-01-21] MEDS ORDERED: FOLI-43 MT (12:47)
[2020-01-21] MEDS ORDERED: GABA-531 MT (12:47)
[2020-01-21] MEDS ORDERED: MULT-1146 MT (12:47)
== END 2020-01-21 14:38 | disposition home health service (06) | DRG 425 ==
LOC: ER 06:37 → 6EST 22:47 → EDBEDREQ 22:58 → EDBEDREQTM 22:58 → ENRESERV 01-08 07:46
PROVIDERS: ADMIT Internal Medicine; ATTEND Internal Medicine
DX: E87.6 Hypokalemia (principal); E44.1 Mild protein-calorie malnutrition; G82.20 Paraplegia, unspecified; F10.10 Alcohol abuse, uncomplicated; M19.90 Unspecified osteoarthritis, unspecified site; F17.210 Nicotine dependence, cigarettes, uncomplicated; Z99.3 Dependence on wheelchair; Z68.27 Body mass index [BMI] 27.0-27.9, adult; Z79.899 Other long term (current) drug therapy
CPT/HCPCS: 36415; 80048; 80053; 85025; 97110; 97162; 97166; 97530; 99285; J1650; J1885; J2060; J2270

== ENCOUNTER 2021-07-13 14:13 | Emergency (ER) | payer MEDICAID ==
[~2021-07-13] VITALS: Ht 165.1 cm; Wt 65.0 kg
[~2021-07-13 14:13] MED LIST changes: +FOLI-43 MT; +GABA-532 MT; -GABA-533 PO; -HYDR-4009 PO; +IBUP-2028 PO; +LIDO76.5 TP; +LIP40 PO; -METH-612 PO; +METH-774 PO; +MULT-1146 MT; +POLY17PO3 PO; +SENN1TAB35 PO; +TOPUD PO
[2021-07-13] MEDS ORDERED: ASPIRIN 325MG EC TABLET PO ONE (17:30)
[2021-07-13 18:16] LABS: BASOPHILS % 0.6 % (0.0-2.0); EOSINOPHILS % 0.7 % (0.0-5.0); HEMATOCRIT. 35.1 % (36.0-48.0); HEMOGLOBIN. 11.9 g/dL (12.0-16.0); LYMPHOCYTES % 38.6 % (20.0-50.0); MEAN CORPUSCULAR HEMOGLOBIN 32.1 pg (28.0-32.0); MEAN CORPUSCULAR VOLUME 94.7 fL (81.0-99.0); MEAN PLATELET VOLUME 8.9 fl (7.4-10.4); MONOCYTES % 6.7 % (2.0-8.0); NEUTROPHILS % 53.4 % (40.0-76.0); PLATELET 262 x1000/uL (130-400); RED BLOOD CELL COUNT 3.71 mill/uL (4.2-5.4); RED CELL DISTRIBUTION WIDTH 13.4 % (11.6-14.6)
[2021-07-13 18:24] LABS: CHLORIDE 107 mEq/L (98-107)
[2021-07-13 20:00] VITALS: BP 125/66
== END 2021-07-13 22:10 | disposition home or self-care (01) ==
LOC: ER 14:13
DX: H92.03 Otalgia, bilateral (principal); M54.2 Cervicalgia; Z79.899 Other long term (current) drug therapy
CPT/HCPCS: 36415; 71045; 80053; 84484; 85025; 93005; 99285